=== PATIENT | male | born 1990 ===

== ENCOUNTER 2019-04-07 10:22 | Emergency (ER) | payer BC ==
[2019-04-07 10:47] VITALS: BP 126/67
[2019-04-07] MEDS ORDERED: Lidocaine 2% w EPI 1:100,000* 20 ML MDV VIAL INJ ONE (11:04)
--- NOTE | 2019-04-07 11:55 | UC ---
Skin Complaint HPI - HPI Summary HPI Summary: splinter left heel x 2 weeks the area is painful, swollen , red, his removed most of the splinter but he thinks there is more no fever, no chills, pain is 6 out of 10 , worse by applying pressure/ walking, better with elevation - History of Current Complaint Chief Complaint: UCLowerExtremity Time Seen by Provider: 04/07/19 10:45 Stated Complaint: L FOOT CONCERN Hx Obtained From: Patient Onset/Duration: Sudden Onset, Lasting Weeks - 2, Still Present Timing: Constant Onset Severity: Moderate Current Severity: Moderate Pain Intensity: 0 Pain Scale Used: 0-10 Numeric Location: Discrete - left heep Character: Swelling, Pain, Redness, Raised, Painful Aggravating Factor(s): Touch Alleviating Factor(s): Other - elevation Associated Signs & Symptoms: Negative: Fever, Chills Related History: Foreign Body - splinter left heel - Allergy/Home Medications Allergies/Adverse Reactions: Allergies Allergy/AdvReac Type Severity Reaction Status Date / Time No Known Allergies Allergy Verified 04/07/19 10:47 Home Medications: Home Medications NK [No Home Medications Reported] 04/07/19 [History Confirmed 04/07/19] PMH/Surg Hx/FS Hx/Imm Hx Previously Healthy: Yes - Surgical History Surgical History: None - Family History Known Family History: Negative: Diabetes - Social History Alcohol Use: Occasionally Substance Use Type: Marijuana Substance Use Comment - Amount & Last Used: daily Smoking Status (MU): Former Smoker Type: eCigarettes Review of Systems All Other Systems Reviewed And Are Negative: Yes Constitutional: Positive: Negative Skin: Positive: Negative Eyes: Positive: Negative Is Patient Immunocompromised?: No Physical Exam Triage Information Reviewed: Yes Appearance: Well-Appearing, No Pain Distress, Well-Nourished Vital Signs: Initial Vital Signs Temp 99.2 F 04/07/19 10:42 Pulse 73 04/07/19 10:42 Resp 18 04/07/19 10:42 BP 126/67 04/07/19 10:42 Pulse Ox 98 04/07/19 10:42 Vital Signs Reviewed: Yes Eye Exam: Normal Eyes: Positive: Conjunctiva Clear ENT: Positive: Normal ENT inspection, Hearing grossly normal, Pharynx normal Neck: Positive: Supple Respiratory: Positive: Chest non-tender, Lungs clear, Normal breath sounds Cardiovascular: Positive: RRR, No Murmur, Pulses Normal Skin: Positive: Other - left heel: + swelling, erythe, tender to touch , dark spot cw possibe splinter Procedures - Procedure Summary Procedure Summary: removal of splinter left heel: the area was cleaned using alcohol pads, anesthesia : 2 cc 2% lidocaine with epi using # 11 blade 1/2 cm incision was make , splinter was visualized and fully removed sterile dressing was applied Course/Dx - Diagnoses Provider Diagnosis: Splinter of left foot with infection Discharge ED - Sign-Out/Discharge Documenting (check all that apply): Patient Departure All imaging exams completed and their final reports reviewed: No Studies - Discharge Plan Condition: Stable Disposition: HOME Patient Education Materials: Soft Tissue Foreign Body (ED) Referrals: Liza Salgado PA [Primary Care Provider] - - Billing Disposition and Condition Condition: STABLE Disposition: Home
== END 2019-04-07 11:27 | disposition home or self-care (01) ==
LOC: UCCORT 10:22
DX: S90.852A Superficial foreign body, left foot, initial encounter (principal); L08.9 Local infection of the skin and subcutaneous tissue, unspecified; Z87.891 Personal history of nicotine dependence; W45.8XXA Other foreign body or object entering through skin, initial encounter; Y92.9 Unspecified place or not applicable
CPT/HCPCS: 28190; 99211; G0463